=== PATIENT | male | born 1960 | race Caucasian/White ===

== ENCOUNTER 2022-06-27 05:56 | Day surgery (SDC) | payer OTHER ==
[2022-06-27] MEDS ORDERED: Ringers Lactate 1,000 ML IV ONE (06:17)
[2022-06-27] MEDS: MOXIFLOXACIN HCL 0.5% 3ML OPTH OPTH ONE ×3 (06:45→07:15)
[2022-06-27] MEDS: KETOROLAC OPTHALMIC 5 ML BOT ONE ×3 (06:45→07:15)
[2022-06-27] MEDS: CYCLOPENTOLATE 2% OPTH 2 ML ONE ×3 (06:45→07:15)
[2022-06-27] MEDS: PHENYLEPHRINE 10% OPTH 5ML ONE ×3 (06:45→07:15)
[2022-06-27] MEDS: TROPICAMIDE 1% OPTH 3 ML BOT ONE ×3 (06:45→07:15)
[2022-06-27] MEDS ORDERED: BSS OPTHALMIC SOL 15 ML OPTH ONE (07:03)
[2022-06-27] MEDS ORDERED: EPINEPHRINE/PF 1 MG/ML AMP ONE (07:03)
[2022-06-27] MEDS ORDERED: TOBRADEX 0.3-0.1% OPTH OINTMENT ONE (07:03)
[2022-06-27] MEDS ORDERED: POVIDONE-IODINE 5% EYE DROPS ONE (07:04)
[2022-06-27] MEDS ORDERED: BALANCED SALT IRRIG PLAIN 500 ML IRR ONE (07:04)
[2022-06-27] MEDS ORDERED: propofoL 200 MG/20 ML VIAL IV ONE (07:26)
[2022-06-27] MEDS ORDERED: FENTANYL CITR 100 MCG/2 ML ONE (07:26)
[2022-06-27] MEDS ORDERED: LIDOCAINE 2% MPF 5 ML VIAL ONE (07:27)
[2022-06-27] MEDS ORDERED: MIDAZOLAM HCL 2 MG/2 ML INJ ONE (07:27)
[2022-06-27] MEDS ORDERED: ONDANSETRON 4 MG/2 ML VIAL ONE (07:27)
[2022-06-27] MEDS ORDERED: TRYPAN BLUE 0.5 ML SYR OPTH ONE (07:57)
[2022-06-27] MEDS: DUOVISC 1 KIT OPTH ONE ×2 (07:59→08:17)
--- NOTE | 2022-06-27 10:06 | OP ---
Date of Procedure: 06/27/2022 Surgeon: Gregorio Machado MD Paster Supervisor: None. Preoperative Diagnosis: Visually significant cataract, right eye. Postoperative Diagnosis: Visually significant cataract, right eye. Procedure Performed: Complex cataract extraction of right eye with placement of intraocular lens aft er using trypan blue for poor visualization. Description Of Procedure: After being properly identified in preoperative holding, the patient was t aken back to the operating room where a time-out was performed. After the examination was performed, the patient was prepped and draped in the normal sterile fashion. Examination of the eye underneath the operating microscope revealed a well dilated pupil with a poor red reflex. Therefore, the decis ion to use trypan blue in order to aid visualization was made. The globe was grasped with a pair of 0.12 forceps and a paracentesis wound was made in the 12 o'clock and 6 o'clock position where after t rypan blue was instilled into the anterior chamber, allowed to sit for approximately 60 seconds, and then irrigated out. This was repeated x1. Thereafter, the main phaco incision was wound was made us ing a keratome 2.4 mm temporally in a triplanar fashion. The cystotome was used to initiate an anter ior capsulotomy, which was then completed with Utrata forceps. Hydrodissection and hydrodelineation were carefully carried out and thereafter the lens was removed in a standard divide and conquer techn ique. Of note, there was a significant leaf thick and tough at the epinuclear membrane, but this was removed in toto. Once this had been removed, the phaco handpiece was exchanged for bimanual irrigat ion aspiration handpieces, which were used to remove the remaining cortical material. 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 Therefore, this was left and will be removed postoperatively. Capsular bag was inflated with additional viscoelastic and a Paul and Paul model DCB00 power 10 .0 diopters, serial #[id number] was instilled into the capsular bag and rotated into position and the viscoelastic thereafter removed again using the bimanual handpieces. Once all viscoelastic had been removed, the lens appeared well centered. The wounds were hydrated and found to be watertight and t he procedure concluded with the patient tolerated the procedure extremely well as he was under genera l anesthesia the entire time. The patient was patched over TobraDex ointment and taken to the postop erative holding area in stable condition. There were no complications. Estimated blood loss less th an 1 mL. No specimens were sent. No drains were placed and the implants are as above. The patient is to follow up with myself, Dr. Gregorio Machado tomorrow morning in my office. VIVIEN/MIGUEL Voice ID: [id number] Report ID: [id number]
[2022-06-27 10:07] VITALS: BP 101/54; TEMP 97
[2022-06-27 10:09] VITALS: O2SAT 99
== END 2022-06-27 10:00 | disposition home or self-care (01) ==
LOC: OR 05:56
PROVIDERS: ATTEND Ophthalmology
PROC: 08RJ3JZ Replacement of Right Lens with Synthetic Substitute, Percutaneous Approach (ICD-10-PCS; principal; 2022-06-27 07:30)
DX: H26.8 Other specified cataract (principal); H53.8 Other visual disturbances
CPT/HCPCS: 66982; J2704; J0171; J2001; J2250; J3010; J7120; J2405

== ENCOUNTER 2022-08-01 06:04 | Day surgery (SDC) | payer OTHER ==
[2022-08-01] MEDS ORDERED: PHENYLEPHRINE 2.5% OPTH 2 ML ONE (06:39)
[2022-08-01] MEDS ORDERED: TROPICAMIDE 1% OPTH 3 ML BOT ONE (06:39)
[2022-08-01] MEDS ORDERED: CYCLOPENTOLATE 2% OPTH 2 ML ONE (06:40)
[2022-08-01] MEDS ORDERED: KETOROLAC OPTHALMIC 5 ML BOT ONE (06:40)
[2022-08-01] MEDS ORDERED: Ringers Lactate 1,000 ML IV ONE (06:46)
[2022-08-01] MEDS ORDERED: MOXIFLOXACIN HCL 10 DROPS/ML **OR USE OPTH ONE (06:47)
[2022-08-01] MEDS ORDERED: BSS OPTHALMIC SOL 15 ML OPTH ONE (06:56)
[2022-08-01] MEDS ORDERED: HYALURONATE SODIUM 10 MG/ML SYR OPTH ONE (06:57)
[2022-08-01] MEDS ORDERED: POVIDONE-IODINE 5% EYE DROPS ONE (06:58)
[2022-08-01] MEDS ORDERED: FENTANYL CITR 100 MCG/2 ML ONE (07:10)
[2022-08-01] MEDS ORDERED: MIDAZOLAM HCL 2 MG/2 ML INJ ONE (07:10)
[2022-08-01] MEDS ORDERED: LIDOCAINE 2% MPF 5 ML VIAL ONE (07:10)
[2022-08-01] MEDS ORDERED: propofoL 200 MG/20 ML VIAL IV ONE ×2 (07:10→08:06)
[2022-08-01] MEDS: EPINEPHRINE/PF 1 MG/ML AMP ONE ×2 (07:21→07:59)
[2022-08-01] MEDS: BALANCED SALT IRRIG PLAIN 500 ML IRR ONE ×2 (07:21→07:40)
[2022-08-01] MEDS: TOBRADEX 0.3-0.1% OPTH OINTMENT ONE ×3 (07:34→08:20)
[2022-08-01] MEDS: DUOVISC 1 KIT OPTH ONE ×2 (07:34→08:02)
[2022-08-01] MEDS ORDERED: ONDANSETRON 4 MG/2 ML VIAL ONE (08:03)
[2022-08-01 08:36] VITALS: O2SAT 100
[2022-08-01 09:20] VITALS: BP 143/69; TEMP 97.3
--- NOTE | 2022-08-01 11:13 | OP ---
Date of Procedure: 08/01/2022 Surgeon: Gregorio Machado MD Preoperative Diagnosis: Visually significant senile cataract, left eye. Postoperative Diagnosis: Visually significant senile cataract, left eye. Procedure Performed: Cataract extraction, left eye with placement of intraocular lens. Description Of Procedure: After being properly identified in the preoperative holding area, the minh ent was taken back to the operating room where a time-out was performed. The patient was then preppe d and draped in normal sterile fashion. Examination of the eye underneath the operating microscope r evealed a moderately dilated pupil as well as cataract. The globe was grasped with a pair of 0.12 fo rceps and paracentesis wound was made in the 6 o'clock and 12 o'clock position. The anterior chamber was filled with Viscoat and the globe was thereafter grasped again with a pair of 0.12 forceps and a triplanar phaco incision wound was made temporally. A continuous curvilinear capsulorrhexis was cre ated using a cystotome and completed with Utrata forceps. Hydrodissection and hydrodelineation were carried out using a Bergeron cannula resulting in free rotation of the lens nucleus. The lens was there after removed in a standard divide and conquer technique without complication. After the nucleus was removed, the phaco handpiece was exchanged for bimanual irrigation aspiration handpieces and all cor tical material was removed and the capsular bag polished. The bag was then filled with viscoelastic and Paul and Paul, model ZCB00 IOL power 19.0 diopters, serial #[id number] was implanted into t he capsular bag and dialed into position. The bimanual irrigation aspiration handpieces were exchang ed for a coaxial I and A and all remaining viscoelastic material was removed. The wounds were then h ydrated using a 30-gauge cannula with BSS and the wounds were all found to be watertight and the proc edure thereafter concluded. The lid speculum and drapes were removed and the patient patched over To braDex ointment. He was thereafter taken to the postoperative holding area in stable condition margret oliver tolerated the procedure well, having been under general anesthesia the entire time. There were no complications. Estimated blood loss less than 1 mL. No specimens were sent. No drains were placed. Implants are as above. JPG/MODL Voice ID: [id number] Report ID: [id number]
== END 2022-08-01 09:35 | disposition home or self-care (01) ==
LOC: PRE 06:04 → OR 09:35
PROVIDERS: ATTEND Ophthalmology
PROC: 08RK3JZ Replacement of Left Lens with Synthetic Substitute, Percutaneous Approach (ICD-10-PCS; principal; 2022-08-01 07:30)
DX: H25.9 Unspecified age-related cataract (principal); H54.7 Unspecified visual loss
CPT/HCPCS: 66984; J2704 ×2; J0171; J2001; J2250; J3010; J7120; J2405; J3490